=== PATIENT | male | born 1990 | race African-American/Black ===

== ENCOUNTER 2017-05-08 11:56 | Emergency (ER) | payer SELFPAY ==
[~2017-05-08] VITALS: Ht 185.4 cm; Wt 94.3 kg
[2017-05-08 12:00] VITALS: BP 132/67
--- NOTE | 2017-05-08 12:43 | RAD ---
Three-view right hand and wrist radiographs 05/08/2017 Clinical history: Right wrist and hand pain post injury. PA, lateral and oblique digital radiographs of the right hand and wrist were obtained. An old healed fracture of the distal right fifth metacarpal is noted. No acute fracture or dislocation of the right hand is seen. No fracture or dislocation of the right wrist is noted. Impression: No acute fracture or dislocation of the right hand or wrist is seen.
--- NOTE | 2017-05-08 13:01 | PHYS DOC ---
Past Medical History Past Medical History: Asthma, Other Additional Past Medical Histor: eczema Past Surgical History: Other Additional Past Surgical Histo: lymph nodes removed Alcohol Use: Occasionally Drug Use: Marijuana Adult General Chief Complaint Chief Complaint: HAND PROBLEM HPI HPI Patient is a 27 year old male presents to the emergency department stating that he was trying to move a TV yesterday when he tripped over one of his children's toys and the TV fell on his right hand and wrist. He has having pain over the metacarpal areas and the wrist area. He has decreased strength in the hand however he has full range of motion. Radial pulses 2+ cap refill brisk less than 2 seconds. Patient is right-hand dominant. Review of Systems Review of Systems Constitutional: Denies fever or chills [] Eyes: Denies change in visual acuity, redness, or eye pain [] HENT: Denies nasal congestion or sore throat [] Respiratory: Denies cough or shortness of breath [] Cardiovascular: No additional information not addressed in HPI [] GI: Denies abdominal pain, nausea, vomiting, bloody stools or diarrhea [] : Denies dysuria or hematuria [] Musculoskeletal: Denies back pain. Complaint of right hand right wrist pain Integument: Denies rash or skin lesions [] Neurologic: Denies headache, focal weakness or sensory changes [] Endocrine: Denies polyuria or polydipsia [] Allergies Allergies Allergies Coded Allergies Type Severity Reaction Last Updated Verified No Known Drug Allergies 01/23/15 No Physical Exam Physical Exam Constitutional: Well developed, well nourished, no acute distress, non-toxic appearance. [] HENT: Normocephalic, atraumatic, bilateral external ears normal, oropharynx moist, no oral exudates, nose normal. [] Eyes: PERRLA, EOMI, conjunctiva normal, no discharge. [] Neck: Normal range of motion, no tenderness, supple, no stridor. [] Cardiovascular:Heart rate regular rhythm, no murmur [] Lungs & Thorax: Bilateral breath sounds clear to auscultation [] Abdomen: Bowel sounds normal, soft, no tenderness, no masses, no pulsatile masses. [] Skin: Warm, dry, no erythema, no rash. [] Back: No tenderness Extremities: Right hand right wrist tenderness, no cyanosis, no clubbing, ROM intact, no edema. No swelling no ecchymosis noted Neurologic: Alert and oriented X 3, normal motor function, normal sensory function, no focal deficits noted. [] Psychologic: Affect normal, judgement normal, mood normal. [] Current Patient Data Vital Signs Vital Signs Date Time Temp Pulse Resp B/P (MAP) Pulse Ox O2 Delivery O2 Flow Rate FiO2 05/08/17 12:00 98.2 60 16 100 Room Air 98.2 EKG EKG [] Radiology/Procedures Radiology/Procedures [][facility] [address] [place] [address] IMAGING REPORT Signed PATIENT: CRISSY ORELLANA ACCOUNT: [id number] : 1990 LOCATION: ER AGE: 27 SEX: M EXAM [id number] STATUS: REG ER ORD. PHYSICIAN: VALERIA GOSS APRN REASON: tv fell on hand/wrist yesterday PROCEDURE: HAND RIGHT 3V; WRIST 3V RIGHT Three-view right hand and wrist radiographs 05/08/2017 Clinical history: Right wrist and hand pain post injury. PA, lateral and oblique digital radiographs of the right hand and wrist were obtained. An old healed fracture of the distal right fifth metacarpal is noted. No acute fracture or dislocation of the right hand is seen. No fracture or dislocation of the right wrist is noted. Impression: No acute fracture or dislocation of the right hand or wrist is seen. DICTATED and SIGNED BY: DAVID CHAWLA MD DATE: 05/08/17 1239 CC: VALERIA GOSS APRN; NO PCP; NON,STAFF ~ Course & Med Decision Making Course & Med Decision Making Pertinent Labs and Imaging studies reviewed. (See chart for details) X-ray negative for bony abnormalities. Patient will be placed in a wrist splint. Recommended wearing that for the next 5-7 days. Patient was also encouraged to use ice packs on 20 minutes off 20 minutes several times a day. Elevation as much as possible. Patient will be given a orthopedic to follow-up with if he continues to have pain and discomfort. Signs and symptoms to return back to the emergency department has been provided. Patient will be discharged home in stable condition. [] Dragon Disclaimer Dragon Disclaimer This electronic medical record was generated, in whole or in part, using a voice recognition dictation system. Departure Departure Impression: Primary Impression: Wrist pain, right Additional Impression: Hand pain, right Disposition: 01 HOME, SELF-CARE Condition: STABLE Referrals: NO PCP (PCP) VAZQUEZ REDDY MD Patient Instructions: Hand Contusion, [id number], Wrist Pain, [id number] Additional Instructions: Activity as tolerated. Wear the splint for the next 5-7 days. Ice packs on 20 minutes off 20 minutes several times a day. Tylenol or ibuprofen for pain and discomfort. Elevation as much as possible. Follow-up with an orthopedic in the next 5-7 days. Return back to emergency prior signs symptoms become worse Problem Qualifiers VALERIA GOSS APRN May 08, 2017 13:01
== END 2017-05-08 13:05 | disposition home or self-care (01) ==
LOC: ER 11:56
DX: M25.531 Pain in right wrist (principal); M79.641 Pain in right hand; J45.909 Unspecified asthma, uncomplicated; W20.8XXA Other cause of strike by thrown, projected or falling object, initial encounter; Y93.89 Activity, other specified; Y92.89 Other specified places as the place of occurrence of the external cause; Y99.8 Other external cause status
CPT/HCPCS: 29125; 73110; 73130; 99284-25

== ENCOUNTER 2017-06-17 11:57 | Emergency (ER) | payer SELFPAY ==
[~2017-06-17] VITALS: Ht 185.4 cm; Wt 97.5 kg
[2017-06-17 12:12] VITALS: BP 151/69
[2017-06-17] MEDS ORDERED: SULF1TAB24 PO (13:03)
[2017-06-17] MEDS ORDERED: PRED50TA PO (13:03)
[2017-06-17] MEDS ORDERED: TRAM-48 PO (13:03)
--- NOTE | 2017-06-17 13:03 | PHYS DOC ---
Past Medical History Past Medical History: Asthma, Other Additional Past Medical Histor: eczema Past Surgical History: Other Additional Past Surgical Histo: lymph nodes removed Alcohol Use: Occasionally Drug Use: Marijuana Adult General Chief Complaint Chief Complaint: HAND PROBLEM HPI HPI Patient is a 27 year old male who presents with an insect bite to the right hand that he noted yesterday at work. Patient states the hand is swollen and painful. Review of Systems Review of Systems Constitutional: Denies fever or chills [] Musculoskeletal: Denies back pain or joint pain [] Integument: insect bite to the right hand Neurologic: Denies headache, focal weakness or sensory changes [] Allergies Allergies Allergies Coded Allergies Type Severity Reaction Last Updated Verified No Known Drug Allergies 01/23/15 No Physical Exam Physical Exam Constitutional: Well developed, well nourished, no acute distress, non-toxic appearance. [] Skin: Warm, dry, right dorsal hand with moderate soft tissue swelling. There is erythema over the swollen area a puncture wound in the middle of the area suspicious of an insect bite. Neurovascular exam is intact to the right hand. Back: No tenderness, no CVA tenderness. [] Extremities: No tenderness, no cyanosis, no clubbing, ROM intact, no edema. [] Neurologic: Alert and oriented X 3, normal motor function, normal sensory function, no focal deficits noted. [] Psychologic: Affect normal, judgement normal, mood normal. [] Current Patient Data Vital Signs Vital Signs Date Time Temp Pulse Resp B/P (MAP) Pulse Ox O2 Delivery O2 Flow Rate FiO2 06/17/17 12:12 97.4 70 18 100 Room Air 97.4 EKG EKG [] Radiology/Procedures Radiology/Procedures [] Course & Med Decision Making Course & Med Decision Making Pertinent Labs and Imaging studies reviewed. (See chart for details) Patient has an insect bite to the right hand. The hand is very swollen. There is also erythema to the hand. He was discharged with prednisone, Bactrim, and instructed to take Benadryl at home. He was instructed to elevate to the area. Was provided proper return precautions. His tetanus is up-to-date. Dragon Disclaimer Dragon Disclaimer This electronic medical record was generated, in whole or in part, using a voice recognition dictation system. Departure Departure Impression: Primary Impression: Insect bite of right hand Disposition: HOME, SELF-CARE Condition: STABLE Referrals: NO PCP (PCP) follow up with your doctor in 1-2 weeks Patient Instructions: Insect Bite, [id number] Additional Instructions: You have an insect bite to the right hand. Keep the area clean and dry. Apply warm compresses to the area twice a day. Complete your antibiotics. Take the prednisone as prescribed. Scripts Prednisone (PREDNISONE) 50 Mg Tablet 1 TAB PO DAILY, #5 TAB Prov: YESSICA LUIS APRN 06/17/17 Sulfamethoxazole/Trimethoprim (BACTRIM DS TABLET) 1 Each Tablet 1 TAB PO BID, #20 TAB Prov: YESSICA LUIS APRN 06/17/17 Tramadol Hcl (ULTRAM) 50 Mg Tablet 1 TAB PO Q6HRS, #20 TAB Prov: YESSICA LUIS APRN 06/17/17 Problem Qualifiers Primary Impression: Insect bite of right hand Encounter type: initial encounter Qualified Codes: S60.561A - Insect bite ( nonvenomous) of right hand, initial encounter; W57.XXXA - Bitten or stung by nonvenomous insect and other nonvenomous arthropods, initial encounter YESSICA LUIS APRN Jun 17, 2017 13:03
== END 2017-06-17 13:10 | disposition home or self-care (01) ==
LOC: ER 11:57
DX: S60.561A Insect bite (nonvenomous) of right hand, initial encounter (principal); J45.909 Unspecified asthma, uncomplicated; F12.10 Cannabis abuse, uncomplicated; W57.XXXA Bitten or stung by nonvenomous insect and other nonvenomous arthropods, initial encounter; Y93.89 Activity, other specified; Y92.69 Other specified industrial and construction area as the place of occurrence of the external cause; Y99.0 Civilian activity done for income or pay
CPT/HCPCS: 99283

== ENCOUNTER 2017-09-22 14:33 | Emergency (ER) | payer SELFPAY | END 2017-09-22 16:08 | disposition home or self-care (01) | LOC: ER 14:33 | DX: J06.9 Acute upper respiratory infection, unspecified (principal); J45.909 Unspecified asthma, uncomplicated; F12.10 Cannabis abuse, uncomplicated | CPT/HCPCS: 99283 ==

== ENCOUNTER 2018-05-10 15:34 | Emergency (ER) | payer SELFPAY ==
[~2018-05-10] VITALS: Ht 185.4 cm; Wt 90.7 kg
[~2018-05-10 15:34] MED LIST: AMOX1TAB61 PO; PRED50TA PO; SULF1TAB24 PO; TRAM-48 PO
[2018-05-10 15:35] VITALS: BP 133/75
[2018-05-10] MEDS ORDERED: NAPROXEN 500 MG TABLET PO STA (16:16)
[2018-05-10] MEDS ORDERED: METH4TAB2 PO (16:24)
[2018-05-10] MEDS ORDERED: HYDR-971 PO (16:24)
[2018-05-10] MEDS ORDERED: NAPR-514 PO (16:24)
[2018-05-10] MEDS ORDERED: CYCL10TA2 PO (16:24)
--- NOTE | 2018-05-10 16:24 | PHYS DOC ---
Past Medical History Past Medical History: Asthma, Other Additional Past Medical Histor: eczema Past Surgical History: Other Additional Past Surgical Histo: lymph nodes removed Alcohol Use: Occasionally Drug Use: Marijuana Adult General Chief Complaint Chief Complaint: LOWER BACK PAIN OR INJURY HPI HPI Patient is a 28 year old male with history of asthma who presents today complaining of 9 out of 10 right low back pain nonradiating in nature described as sharp and intermittently worse on movement that began yesterday after helping because it lift a refrigerator while he was moving. Patient denies falling. Denies the refrigerator falling on him. Denies any loss of bowel bladder function. Denies any numbness or tingling to bilateral lower extremities. Has tried [id number] pain relievers with no relief. Review of Systems Review of Systems Constitutional: Denies fever or chills [] Musculoskeletal: Reports right low back pain Integument: Denies rash or skin lesions [] Neurologic: Denies headache, focal weakness or sensory changes [] All other systems were reviewed and found to be within normal limits, except as documented in this note. Allergies Allergies Allergies Coded Allergies Type Severity Reaction Last Updated Verified No Known Drug Allergies 01/23/15 No Physical Exam Physical Exam Constitutional: Well developed, well nourished, no acute distress, non-toxic appearance. [] Abdomen: Bowel sounds normal, soft, no tenderness, no masses, no pulsatile masses. [] Skin: Warm, dry, no erythema, no rash. [] Back: No tenderness, no CVA tenderness. [] Extremities: No tenderness, no cyanosis, no clubbing, ROM intact, no edema. [] Neurologic: Alert and oriented X 3, normal motor function, normal sensory function, no focal deficits noted. [] Psychologic: Affect normal, judgement normal, mood normal. [] Current Patient Data Vital Signs Vital Signs Date Time Temp Pulse Resp B/P (MAP) Pulse Ox O2 Delivery O2 Flow Rate FiO2 05/10/18 15:35 97.5 95 18 133/75 (94) 97 Room Air 97.5 EKG EKG [] Radiology/Procedures Radiology/Procedures [] Course & Med Decision Making Course & Med Decision Making Pertinent Labs and Imaging studies reviewed. (See chart for details) This is a 28-year-old male patient presenting to the ED today with back pain that began yesterday after lifting a refrigerator. Patient sounds like he had a muscle strain. No cauda equina syndrome symptoms. Will be given pain relief including muscle relaxers and steroids. Follow-up with the PCP in 1-2 weeks. Heat recommended to the back. Provided return precautions and discharged in stable condition. Dragon Disclaimer Shaon Disclaimer This electronic medical record was generated, in whole or in part, using a voice recognition dictation system. Departure Departure Impression: Primary Impression: Lumbosacral strain Disposition: HOME, SELF-CARE Condition: STABLE Referrals: NO PCP (PCP) follow up with your doctor in 1-2 weeks Patient Instructions: Lumbosacral Strain Additional Instructions: You were seen for back pain consistent with a muscle strain. Apply heat to your low back. Take the prescribed medications as ordered. Follow-up with your own doctor in 1-2 weeks as needed. Come back to the any point symptoms worsen. Scripts Cyclobenzaprine Hcl (CYCLOBENZAPRINE HCL) 10 Mg Tablet 1 TAB PO TID, #30 TAB Prov: YESSICA LUIS APRN 05/10/18 Naproxen (NAPROXEN) 500 Mg Tablet 1 TAB PO BID, #20 TAB 0 Refills Prov: YESSICA LUIS APRN 05/10/18 Methylprednisolone (MEDROL) 4 Mg Tab.ds.pk 1 PKG PO UD, #1 PKG Prov: YESSICA LUIS APRN 05/10/18 Hydrocodone/Apap 5-325 (NORCO 5-325 TABLET) 1 Each Tablet 1 TAB PO Q6HRS PRN for PAIN, #12 TAB Prov: YESSICA LUIS APRN 05/10/18 Problem Qualifiers Primary Impression: Lumbosacral strain Encounter type: initial encounter Qualified Codes: S39.012A - Strain of muscle, fascia and tendon of lower back, initial encounter YESSICA LUIS APRN May 10, 2018 16:24
[2018-05-10] MEDS ORDERED: predniSONE 10 MG TABLET PO ONE (16:30)
[2018-05-10] MEDS ORDERED: HYDROcodone/APAP 5/325MG 1 TAB TABLET PO ONE (16:30)
[2018-05-10] MEDS ORDERED: diazePAM 5 MG TABLET PO ONE (16:30)
== END 2018-05-10 16:37 | disposition home or self-care (01) ==
LOC: ER 15:34
DX: S39.012A Strain of muscle, fascia and tendon of lower back, initial encounter (principal); J45.909 Unspecified asthma, uncomplicated; X50.0XXA Overexertion from strenuous movement or load, initial encounter; Y93.89 Activity, other specified; Y92.89 Other specified places as the place of occurrence of the external cause; Y99.8 Other external cause status
CPT/HCPCS: 99284; J7512

== ENCOUNTER 2018-07-05 07:05 | Emergency (ER) | payer SELFPAY ==
[~2018-07-05] VITALS: Ht 182.9 cm; Wt 90.7 kg
[~2018-07-05 07:05] MED LIST changes: +CYCL10TA2 PO; +HYDR-971 PO; +METH4TAB2 PO; +NAPR-514 PO
[2018-07-05 07:09] VITALS: BP 124/76
[2018-07-05] MEDS ORDERED: HYDR25CA75 PO (07:35)
[2018-07-05] MEDS ORDERED: hydrOXYzine PAMOATE 25 MG CAPSULE PO ONE (07:45)
--- NOTE | 2018-07-05 07:46 | PHYS DOC ---
Past Medical History Past Medical History: Asthma Additional Past Medical Histor: eczema Past Surgical History: Other Additional Past Surgical Histo: lymph node removal Alcohol Use: Occasionally Drug Use: None Adult General Chief Complaint Chief Complaint: ITCHING HPI HPI Patient is a 28 year old male who presents with bed bug bites. He states he stayed in a new hotel last night. He awoke with multiple bug bites over the right scapula that are pruritic. The patient inspected the local surroundings and did find what he perceived to be bedbugs around the mattress. He presents to the ER primarily complaining of pruritus of the bites. No additional complaints today Review of Systems Review of Systems Constitutional: Denies fever Eyes: Denies change in visual acuity HENT: Denies nasal congestion Respiratory: Denies cough or shortness of breath Cardiovascular: No additional information not addressed in HPI GI: Denies abdominal pain Integument: as documented All other systems were reviewed and found to be within normal limits, except as documented in this note. Current Medications Current Medications Current Medications Medications (Trade) Dose Ordered Sig/Gracia Start Time Stop Time Status Last Admin Dose Admin Hydroxyzine Pamoate (Vistaril) 25 mg 1X ONCE 07/05/18 07:45 07/05/18 07:46 Allergies Allergies Allergies Coded Allergies Type Severity Reaction Last Updated Verified No Known Drug Allergies 01/23/15 No Physical Exam Physical Exam Constitutional: Well developed, well nourished, no acute distress, non-toxic appearance HENT: Normocephalic, atraumatic, bilateral external ears normal, oropharynx moist Eyes: PERRLA, EOMI, conjunctiva normal Neck: Normal range of motion Skin: Warm, dry, no erythema, multiple insect bites are present on the skin over the right scapula. There is no local cellulitis or erythema. Neurologic: Alert and oriented X 3 Psychologic: Affect normal Current Patient Data Vital Signs Vital Signs Date Time Temp Pulse Resp B/P (MAP) Pulse Ox O2 Delivery O2 Flow Rate FiO2 07/05/18 07:09 98.1 85 16 124/76 (92) 98 Room Air 98.1 EKG EKG [] Radiology/Procedures Radiology/Procedures [] Course & Med Decision Making Course & Med Decision Making Pertinent Labs and Imaging studies reviewed. (See chart for details) Patient evaluated for insect bites. No cellulitis. No indication for antibiotics. He is provided hydroxyzine to help with his symptoms. He is discharged home with the same. Return to the ER for any new or worsening symptoms. Dragelie Disclaimer Zulema Disclaimer This electronic medical record was generated, in whole or in part, using a voice recognition dictation system. Departure Departure Impression: Primary Impression: Bed bug bite Disposition: HOME, SELF-CARE Condition: GOOD Patient Instructions: Bedbugs, [id number] Scripts Hydroxyzine Pamoate (HYDROXYZINE PAMOATE) 25 Mg Capsule 25 MG PO TID for itching, #21 TAB Prov: MONA NGUYEN DO 07/05/18 MONA NGUYEN DO Jul 05, 2018 07:46
[2018-07-05] MEDS ORDERED: fentaNYL PF VIAL 100 MCG/2 ML VIAL IV ONE (08:30)
== END 2018-07-05 07:59 | disposition home or self-care (01) ==
LOC: ER 07:05
DX: S40.261A Insect bite (nonvenomous) of right shoulder, initial encounter (principal); L29.9 Pruritus, unspecified; J45.909 Unspecified asthma, uncomplicated; W57.XXXA Bitten or stung by nonvenomous insect and other nonvenomous arthropods, initial encounter; Y93.89 Activity, other specified; Y92.59 Other trade areas as the place of occurrence of the external cause; Y99.8 Other external cause status
CPT/HCPCS: 99283; Q0177